=== PATIENT | female | born 1985 | race African-American/Black ===

== ENCOUNTER 2017-04-30 21:07 | Emergency (ER) | payer MEDICAID ==
[~2017-04-30] VITALS: Ht 167.6 cm; Wt 90.7 kg
[2017-04-30] MEDS ORDERED: OMEPRAZOLE10 M1 ORAL (21:09)
[2017-04-30] MEDS ORDERED: PHENERGAN SUPP25 MG BC (21:09)
[2017-04-30] MEDS ORDERED: BUSPIRONE HCL5 M2 ORAL (21:09)
--- NOTE | 2017-04-30 21:14 | Emergency Room Report ---
History of Present Illness General Chief Complaint: Asthma Source: Patient, EMS Present Illness HPI Is a 31-year-old female with a history of asthma. Usually well controlled a month ago. Now is more frequent exacerbation. [place]. And treat her wheezing. She was short of breath today and went to urgent care. She received prescription for albuterol inhaler and meds, received shot of steroid and prescription for steroid inhaler. Symptom worsen tonight. No nausea no vomiting. [place] tight. No fever or chills. EMS gave her breathing treatment on the way here. She said she fell better now. Allergies: Coded Allergies: No Known Allergies (Unverified , 04/30/17) Patient History Past Medical History: see triage record, old chart reviewed, asthma Past Surgical History: none Pertinent Family History: none Social History: Denies: smoking Last Menstrual Period: UNK Now: No Immunizations: other Reviewed Nursing Documentation: PMH: Agreed, PSxH: Agreed Review of Systems Eye: Denies: eye pain, blurred vision ENT: Denies: ear pain, nose congestion, throat swelling Respiratory: Reports: cough, shortness of breath, wheezing Cardiovascular: Denies: chest pain, palpitations Gastrointestinal: Denies: abdominal pain, diarrhea, nausea, vomiting Musculoskeletal: Denies: back pain, joint pain Skin: Denies: rash Neurological: Denies: headache, numbness Endocrine: Denies: increased thirst, increased urine Hematologic/Lymphatic: Denies: easy bruising All Other Systems: negative except mentioned in HPI Physical Exam Vital Signs Date Time Temp Pulse Resp B/P (MAP) Pulse Ox O2 Delivery O2 Flow Rate FiO2 04/30/17 21:02 97.5 132 24 140/90 100 Simple Mask 6.0 vitals with tachycardia Sp02 EP Interpretation: reviewed, normal General Appearance: well appearing, alert, mild distress Head: normocephalic, atraumatic Eyes: bilateral eye PERRL, bilateral eye EOMI ENT: hearing grossly normal, normal pharynx Neck: full range of motion, supple, no meningismus Respiratory: chest non-tender, decreased breath sounds, accessory muscle use, wheezing Cardiovascular #1: regular rate, rhythm, no murmur, tachycardia Gastrointestinal: normal bowel sounds, non tender, no mass, no organomegaly, no bruit, non-distended Musculoskeletal: back normal, gait/station normal, normal range of motion Psychiatric: mood/affect normal Skin: warm/dry Medical Decision Making Diagnostic Impression: Primary Impression: Asthma attack Qualified Codes: J45.901 - Unspecified asthma with (acute) exacerbation ER Course Patient presents with asthma exacerbation. No evidence of ACS, PE, dissection to name a few. No infection. We'll discharge home. Rhythm Strip Diag. Results EP Interpretation: yes Rate: 103 Rhythm: NSR, no ectopy CT/MRI/US Diagnostic Results CT/MRI/US Diagnostic Results : Imaging Test Ordered: CT chest Impression negative per radiologist Last Vital Signs Date Time Temp Pulse Resp B/P (MAP) Pulse Ox O2 Delivery O2 Flow Rate FiO2 04/30/17 21:02 97.5 132 24 140/90 100 Simple Mask 6.0 Status: improved Disposition: HOME, SELF-CARE Condition: Stable Scripts Prednisone* (PREDNISONE*) 20 Mg Tablet 60 MG ORAL DAILY, #12 TAB Prov: SUKUMAR CARRENO M.D. 05/01/17 Patient Instructions: Asthma, Adult Additional Instructions: Followup your DrArlen in 23 days. Return if symptom worsen. SUKUMAR CARRENO M.D. Apr 30, 2017 21:14
[2017-04-30] MEDS ORDERED: Solu-MEDROL 125mg Inj IVP ONE (21:15)
[2017-04-30 21:20] VITALS: BP 138/88
[2017-04-30 22:01] LABS: HEMATOCRIT 38.1 % (37.0-47.0); HEMOGLOBIN 12.6 G/DL (12.0-16.0); MEAN CORPUSCULAR VOLUME 89 FL (80-99); PLATELET COUNT 305 K/UL (150-450); RED BLOOD COUNT 4.28 M/UL (4.20-5.40); WHITE BLOOD COUNT 7.7 K/UL (4.8-10.8)
[2017-04-30 22:10] LABS: ANION GAP 13 mmol/L (5-15); BLOOD UREA NITROGEN 5 mg/dL (7-18); CALCIUM 8.7 MG/DL (8.5-10.1); CARBON DIOXIDE 21 MMOL/L (21-32); CHLORIDE 105 MMOL/L (98-107); POTASSIUM 3.5 MMOL/L (3.5-5.1); SODIUM 139 MMOL/L (136-145)
[2017-04-30 22:13] LABS: APPEARANCE,URINE CLEAR; BILIRUBIN, URINE NEGATIVE (NEGATIVE); COLOR,URINE PALE YELLOW; GLUCOSE, URINE (UA) NEGATIVE (NEGATIVE); KETONES,URINE NEGATIVE (NEGATIVE); LEUKOCYTE ESTERASE ,URINE 1+ (NEGATIVE); NITRITE,URINE NEGATIVE (NEGATIVE); PH,URINE 5 (4.5-8.0); PROTEIN,URINE NEGATIVE (NEGATIVE); UROBILINOGEN,URINE NORMAL MG/DL (0.0-1.0)
[2017-04-30 22:30] VITALS: BP 126/88
[2017-04-30 23:30] VITALS: BP 130/83
[2017-05-01] MEDS ORDERED: Albuterol ud Inhalation HHN ONE
[2017-05-01 00:05] VITALS: BP 118/72
[2017-05-01] MEDS ORDERED: Ketorolac 30mg Inj IV ONE (00:15)
[2017-05-01 01:00] VITALS: BP 122/72
[2017-05-01] MEDS ORDERED: PREDNISONE20 MG ORAL (01:48)
[2017-05-01 02:00] VITALS: BP 113/72
[2017-05-01 02:10] VITALS: BP 113/72
--- NOTE | 2017-05-01 08:55 | Diagnostic Imaging Report ---
Indication: Shortness of breath Technique: CT pulmonary angiogram performed utilizing automated exposure control with intravenous contrast. Axial, sagittal and coronal reconstructions were obtained. 3-D volumetric reconstructions were also performed. CT dose: Total DLP 786 mGycm; CTDI vol 30.5 mGy Comparison: None Findings: There is suboptimal contrast opacification of the pulmonary arteries. This renders the examination nondiagnostic for small subsegmental pulmonary emboli. There is no central, lobar or occlusive proximal segmental pulmonary embolism. Main pulmonary artery is normal in caliber. Thoracic aorta is normal in caliber. No evidence to suggest aortic dissection. There is a common origin of the brachiocephalic and left common carotid arteries, a normal anatomic variant. There is minimal dependent atelectasis. There is no focal airspace consolidation, no pleural effusion, no pneumothorax. No large endobronchial lesion identified. Heart size within normal limits. No pericardial effusion. No mediastinal or hilar adenopathy. Thyroid is normal. There is triangular soft tissue attenuation in the anterior mediastinum, likely residual thymus. Breast tissue appears symmetric. There is a partially visualized 1.3 cm low-attenuation lesion in the posterior right hepatic lobe which may represent a simple hepatic cyst. Otherwise, imaged upper abdomen unremarkable. No acute osseous abnormality seen. Impression: Suboptimal contrast opacification of the pulmonary arteries renders exam nondiagnostic for small distal segmental and subsegmental pulmonary emboli. No central, lobar or large proximal segmental pulmonary embolism seen. No thoracic aortic aneurysm or dissection. Lungs essentially clear. 1.3 cm low-attenuation lesion in the posterior right hepatic lobe possibly representing a simple hepatic cyst. More definitive characterization with abdominal ultrasound recommended on a nonemergent basis. This corresponds with the statrad preliminary report. The CT scanner at [facility] is accredited by the [employer] and the scans are performed using protocols designed to limit radiation exposure to as low as reasonably achievable to attain images of sufficient resolution adequate for diagnostic evaluation.
== END 2017-05-01 02:10 | disposition home or self-care (01) ==
LOC: EDBD 21:07 → EMR 21:15
DX: J45.901 Unspecified asthma with (acute) exacerbation (principal)
CPT/HCPCS: 36415; 71275; 80048; 81001; 81025; 84439; 84443; 85007; 85025; 85379; 94640; 94664; 96361; 96374; 96375; 99284; J1885; J2930; Q9967

== ENCOUNTER 2017-05-06 13:04 | Emergency (ER) | payer MEDICAID ==
[~2017-05-06] VITALS: Ht 160 cm; Wt 113.4 kg
[~2017-05-06 13:04] MED LIST: BUSPIRONE HCL5 M2 ORAL; OMEPRAZOLE10 M1 ORAL; PHENERGAN SUPP25 MG BC; PREDNISONE20 MG ORAL
--- NOTE | 2017-05-06 13:47 | Emergency Room Report ---
History of Present Illness General Chief Complaint: General Complaint Present Illness HPI 31 presents to the ED c/o Intermittent dizziness that she feels off balance, hyperventilation, numbness and tingling in the hands and feet, feeling as though something bad is going to happen to her, in addition to tightness in the chest x5 days. Patient was prescribed albuterol nebulized treatments at home for moderate to severe asthma exacerbation. She states that her wheezes do return on occasion. She reports that she just finished her last day of oral steroid. Denies fevers, chills, syncope.Pt. She reports hx of palpitations and has a tip bander who has evaluated her. Pt. reports hx of vertigo. Reports feeling palpitations as well during episodes. Denies CP, LOC, AMS, dizziness , Changes in Vision, or a sudden severe headache. Pt. reports having hx of anxiety, and sees a therapist regularly. reports previous trial of Buspar with no relief of her symptoms. pt. denies trials of other anti-anxiety or psychiatric medications. Pt. requests refill of meclizine as she has hx of vertigo. Allergies: Coded Allergies: No Known Allergies (Unverified , 04/30/17) Patient History Past Medical History: see triage record Past Surgical History: none Pertinent Family History: none Now: No Reviewed Nursing Documentation: PMH: Agreed, PSxH: Agreed Review of Systems All Other Systems: negative except mentioned in HPI Physical Exam Vital Signs Date Time Temp Pulse Resp B/P (MAP) Pulse Ox O2 Delivery O2 Flow Rate FiO2 05/06/17 13:08 98.1 95 20 107/79 98 Room Air Sp02 EP Interpretation: reviewed, normal General Appearance: no apparent distress, alert, GCS 15, non-toxic Head: normocephalic, atraumatic Eyes: bilateral eye normal inspection, bilateral eye PERRL ENT: hearing grossly normal, normal voice Neck: full range of motion Respiratory: chest non-tender, lungs clear, normal breath sounds, no wheezing, speaking full sentences Cardiovascular #1: regular rate, rhythm, normal capillary refill Gastrointestinal: normal bowel sounds, non tender, soft, no guarding, no rebound Rectal: deferred Genitourinary: normal inspection Musculoskeletal: back normal, gait/station normal, normal range of motion, non- tender Neurologic: alert, oriented x3, responsive, motor strength/tone normal, sensory intact, normal gait, speech normal, no pronator, other - no nystagmus Psychiatric: memory normal, no suicidal/homicidal ideation, no delusions, anxious - mildly tearful / describes agoraphobia Skin: normal color, no rash, warm/dry, well hydrated Medical Decision Making PA Attestation Dr. Barrera is my supervising Physician whom patient management has been discussed with. Diagnostic Impression: Primary Impression: Anxiety reaction ER Course 31 presents to the ED c/o Intermittent dizziness that she feels off balance, hyperventilation, numbness and tingling in the hands and feet, feeling as though something bad is going to happen to her, in addition to tightness in the chest x5 days. Patient was prescribed albuterol nebulized treatments at home for moderate to severe asthma exacerbation. She states that her wheezes do return on occasion. She reports that she just finished her last day of oral steroid. Denies fevers, chills, syncope.Pt. She reports hx of palpitations and has a tip bander who has evaluated her. Pt. reports hx of vertigo. Reports feeling palpitations as well during episodes. Denies CP, LOC, AMS, dizziness , Changes in Vision, or a sudden severe headache. Pt. reports having hx of anxiety, and sees a therapist regularly. reports previous trial of Buspar with no relief of her symptoms. pt. denies trials of other anti-anxiety or psychiatric medications. Pt. requests refill of meclizine as she has hx of vertigo. Ddx considered but are not limited to anxiety, SD, PE, asthma, thyroid storm, hyperthyroid, EPS Vital signs: are WNL, pt. is afebrile H&PE are most consistent with anxiety attack most likely potentiated by albuterol , no focal neurological deficits. No nystagmus or elicitation of vertigo upon Clark-Hallpike. pt. describes agoraphobia. ORDERS: none required at this time, the diagnosis is clinical -- EK BPM NSR - no acute ST changes reviewed by Dr. Barrera, this interpretation was scribed by JOLYNN Izquierdo ED INTERVENTIONS: - 1mg Ativan PO d/w pt. conservative treatment with anxiolytic , and close follow up with a primary care provider . pt given a list of primary care clinics and [facility] health urgent care information for follow up. d/w pt. to return to the ED with worsening or new symptoms. -Pt. instructed to D/C albuterol, will switch to xopidex as it has less sympathomimetic side effects. DISCHARGE: At this time pt. is stable for d/c to home. Will provide printed patient care instructions, and any necessary prescriptions. Care plan and follow up instructions have been discussed with the patient prior to discharge. EKG Diagnostic Results EP Interpretation: Dr. Barrera Rate: normal - 91 BPM Rhythm: NSR ST Segments: no acute changes ASA given to the pt in ED: No PA Scribe Text -- EK BPM NSR - no acute ST changes reviewed by Dr. Barrera, this interpretation was scribed by JOLYNN Izquierdo Last Vital Signs Date Time Temp Pulse Resp B/P (MAP) Pulse Ox O2 Delivery O2 Flow Rate FiO2 05/06/17 13:08 98.1 95 20 107/79 98 Room Air Disposition: HOME, SELF-CARE Condition: Stable Scripts Meclizine Hcl* (MECLIZINE*) 25 Mg Tablet 25 MG ORAL PRN for for dizziness, #15 TAB Prov: Ying Izquierdo 05/06/17 Alprazolam* (XANAX*) 0.5 Mg Tablet 0.5 MG ORAL PRN for For Anxiety, #10 TAB Prov: Ying Izquierdo 05/06/17 Levalbuterol Hcl (XOPENEX*) 0.63 Mg/3 Ml Vial.neb 0.63 MG HHN Q4H for 30 Days, #30 MG 0 Refills Prov: Ying Izquierdo 05/06/17 Referrals: [facility]ERR[facility] (PCP) Patient Instructions: Generalized Anxiety Disorder Additional Instructions: Take medications as directed. Follow up with a Primary Care Provider in 3-5 days, even if your symptoms have resolved. REVIEW [facility] resource information is provided. Return sooner to ED if new symptoms occur, or current symptoms become worse. - Please note that this Emergency Department Report was dictated using Appointed[employer] technology software, occasionally this can lead to erroneous entry secondary to interpretation by the dictation equipment. Ying Izquierdo May 06, 2017 13:47
[2017-05-06] MEDS ORDERED: XANAX0.5 MG ORAL (13:56)
[2017-05-06] MEDS ORDERED: MECLIZINE HCL25 MG ORAL (13:56)
[2017-05-06] MEDS ORDERED: XOPENEX0.63 MG/3 HHN (13:56)
[2017-05-06] MEDS ORDERED: LORazepam 1mg tab ORAL ONE (14:00)
[2017-05-06 14:07] VITALS: BP 116/72
--- NOTE | 2017-05-14 16:01 | Cardiology Report ---
APPROVED REPORT EKG Measurement Heart [id number] Normal sinus rhythm with sinus arrhythmia Normal ECG
== END 2017-05-06 14:14 | disposition home or self-care (01) ==
LOC: EMR 13:15
DX: F41.1 Generalized anxiety disorder (principal); R42 Dizziness and giddiness; R07.9 Chest pain, unspecified
CPT/HCPCS: 93005; 99284

== ENCOUNTER 2017-09-23 13:36 | Emergency (ER) | payer MEDICAID ==
[~2017-09-23] VITALS: Ht 160 cm; Wt 113.4 kg
[~2017-09-23 13:36] MED LIST changes: +MECLIZINE HCL25 MG ORAL; +XANAX0.5 MG ORAL; +XOPENEX0.63 MG/3 HHN
[2017-09-23] MEDS ORDERED: METHADONE HCL5 MG PO (13:47)
[2017-09-23] MEDS ORDERED: MORPHINE IR15 MG ORAL (13:47)
[2017-09-23] MEDS ORDERED: ALBUTEROL SULF8.5 GM INH (13:47)
[2017-09-23] MEDS ORDERED: Ketorolac 30mg Inj IM ONE (14:15)
--- NOTE | 2017-09-23 14:22 | Emergency Room Report ---
History of Present Illness General Chief Complaint: General Complaint Source: Patient Present Illness HPI 31-year-old female patient presents ER complaining of vomiting for the past few days. Patient reports "I think this is because of marijuana withdrawal". Patient reports that she's been smoking marijuana intermittently for the past 4 months. Also reports a history of chronic pain secondary to endometriosis, currently taking morphine and methadone for treatment of symptoms. Reports last took medication today. patient reports "I want to stop taking pain medication".. Patient reports she has been taking pain medication for several years. patient denies other acute symptoms, denies chest pain, shortness of breath, dysuria, hematuria, diarrhea. Denies vomiting blood. Reports history of gallstones, diagnosed a while ago, was not informed that she needed surgery at that time. States she had appointment with her primary care provider yesterday but missed appointment because too far away in [place], states contacted office and rescheduled appointment for October 08. Denies . reports history of vertigo, denies symptoms at this time. Allergies: Coded Allergies: No Known Allergies (Unverified , 04/30/17) Patient History Past Medical History: see triage record Reviewed Nursing Documentation: PMH: Agreed; PSxH: Agreed Nursing Documentation-PMH Past Medical History: No History, Except For Hx Cardiac Problems: Yes - IRREGULAR HEARTBEAT Hx Asthma: Yes History Of Psychiatric Problem: Yes - Anxiety Hx Neurological Problems: Yes - Vertigo Review of Systems All Other Systems: negative except mentioned in HPI Physical Exam Vital Signs Date Time Temp Pulse Resp B/P (MAP) Pulse Ox O2 Delivery O2 Flow Rate FiO2 09/23/17 13:41 98.0 103 18 109/75 99 98.1 Sp02 EP Interpretation: reviewed, normal General Appearance: well appearing, no apparent distress, alert, GCS 15, non- toxic Head: normocephalic, atraumatic Eyes: bilateral eye normal inspection, bilateral eye PERRL ENT: hearing grossly normal, normal pharynx, no angioedema, normal voice, uvula midline, moist mucus membranes Neck: full range of motion Respiratory: lungs clear, normal breath sounds, no rhonchi, no respiratory distress, no accessory muscle use, no wheezing, speaking full sentences Cardiovascular #1: regular rate, rhythm, no edema Gastrointestinal: non tender, soft, no mass, non-distended, no guarding, no rebound, other - negative Pratt, negative Rovsing Genitourinary: no CVA tenderness Musculoskeletal: back normal, digits/nails normal, gait/station normal, normal range of motion, non-tender Neurologic: alert, oriented x3, responsive, motor strength/tone normal, sensory intact Psychiatric: mood/affect normal Skin: no rash Lymphatic: no adenopathy Medical Decision Making PA Attestation Dr. Wade is my supervising Physician whom patient management has been discussed with. Diagnostic Impression: Primary Impression: Vomiting Additional Impressions: Marijuana use Opioid dependence, daily use ER Course Pt. presents to the ED c/o vomiting. Ddx considered but are not limited to gastritis, viral syndrome, food poisoning , UTI, , marijuana use, drugs. Vital signs: are WNL, pt. is afebrile ordered UA, urine , urine drug screen, Zofran and Toradol. ER course: Informed patient that she needs to follow-up with pain management discuss treatment plan to wean her off medications. Patient follow-up with primary care provider to ask for referral if needed. Follow with primary care provider about history of gallstones. On physical exam, no appetite tonal tenderness to palpation with distraction, negative Pratt sign, patient does not require labs or imaging at this time. Can follow up outpatient for further management and treatment. ordered UA, urine drug screen, urine to rule out underlying etiology of symptoms. CURES report reviewed, patient receives prescription for methadone and morphine from same provider for the last few months, last given one month ago. Informed patient that she needs to follow up with his provider to discuss reason for methadone and morphine, instructed informed patient usually not given together. Instructed to patient not to change the amount of dosage of medication that she takes without first consulting her primary care provider or paint spray tender, patient states she's been slowly taking less morphine pills without first consulting doctor. Informed patient that that may be why her pain symptoms are increasing, needs to come up with tape plan with her physician. urine drug screen positive for marijuana and opioids. UA shows no nitrites, 1+ leukocyte esterase and 2-4 WBCs, many epithelial cells , patient isn't medically, low suspicion for UTI, does not require antibiotics at this time. Urine negative. discussed results with patient. Symptoms likely related to opioids and marijuana use. don't smoke marijuana. Patient reports feeling better following administration of medication. Patient able to tolerate PO fluids at this time. Patient does not require abx at this time; afebrile, no recent travel, no blood in stool. Return to ER if symptoms persist. Drink fluids as tolerated to prevent dehydration. Patient reports feeling better, able to tolerate PO fluids, OK for discharge to home. DISCHARGE Rx provided for [place] At this time pt is stable for d/c to home. Patient is resting comfortably, in no acute distress, nontoxic appearing, talking without difficulty. Patient to take medications as instructed Will provide with patient care instructions and any necessary prescriptions. Care plan and follow-up instructions provided. Patient instructed to follow-up with primary care provider in 3 - 5 days. Patient questions asked and answered. Patient reports understanding and agreement to treatment plan.ER precautions given. Patient instructed to return to ER immediately for any new or worsening of symptoms including but not limited to increasing SOB, persistent fever, intractable vomiting. - Please note that this Emergency Department Report was dictated using Peak[employer] casting machine operator technology software, occasionally this can lead to erroneous entry secondary to interpretation by the dictation equipment. Labs Test 09/23/17 14:19 Urine Color Pale yellow Urine Appearance Turbid Urine pH 8 (4.5-8.0) Urine Specific [place] 1.010 (1.005-1.035) Urine Protein Negative (NEGATIVE) Urine Glucose (UA) Negative (NEGATIVE) Urine Ketones 1+ (NEGATIVE) Urine Occult Blood Negative (NEGATIVE) Urine Nitrite Negative (NEGATIVE) Urine Bilirubin Negative (NEGATIVE) Urine Urobilinogen Normal MG/DL (0.0-1.0) Urine Leukocyte Esterase 1+ (NEGATIVE) Urine RBC 0-2 /HPF (0 - 2) Urine WBC 2-4 /HPF (0 - 2) Urine Squamous Epithelial Cells Moderate /LPF (NONE/OCC) Urine Bacteria Few /HPF (NONE) Urine HCG, Qualitative Negative (NEGATIVE) Urine Opiates Screen Positive (NEGATIVE) Urine Barbiturates Screen Negative (NEGATIVE) Phencyclidine (PCP) Screen Negative (NEGATIVE) Urine Amphetamines Screen Negative (NEGATIVE) Urine Benzodiazepines Screen Negative (NEGATIVE) Urine Cocaine Screen Negative (NEGATIVE) Urine Marijuana (THC) Screen Positive (NEGATIVE) Last Vital Signs Date Time Temp Pulse Resp B/P (MAP) Pulse Ox O2 Delivery O2 Flow Rate FiO2 09/23/17 13:41 98.0 103 18 109/75 99 98.1 Disposition: HOME, SELF-CARE Condition: Stable Scripts Ondansetron* (ZOFRAN*) 4 Mg Tablet 4 MG ORAL Q6H PRN for Nausea & Vomiting, #5 TAB Prov: Messi Rosas 09/23/17 Patient Instructions: Cannabis Use Disorder, Nausea and Vomiting, Adult, Easy- to-Read, Opioid Use Disorder Additional Instructions: Followup with primary care provider in 3 -5 days. discuss referral for further management and treatment of symptoms. Request paint spray tender as needed Follow-up with paint spray tender. Discuss new treatment plan to taper off of opioid medication. Take medications at dosages instructed by provider, do not alter dosages of medications on her own. Avoid spicy foods, avoid dairy foods. BRAT diet: bananas, rice, apple sauce, toast. Take medications as directed. Patient questions asked and answered. ER precautions given, patient instructed to return to ER immediately for any new or worsening of symptoms. Messi Rosas September 23, 2017 14:22
[2017-09-23 14:35] LABS: APPEARANCE,URINE TURBID; BILIRUBIN, URINE NEGATIVE (NEGATIVE); COLOR,URINE PALE YELLOW; GLUCOSE, URINE (UA) NEGATIVE (NEGATIVE); KETONES,URINE 1+ (NEGATIVE); LEUKOCYTE ESTERASE ,URINE 1+ (NEGATIVE); NITRITE,URINE NEGATIVE (NEGATIVE); PH,URINE 8 (4.5-8.0); PROTEIN,URINE NEGATIVE (NEGATIVE); UROBILINOGEN,URINE NORMAL MG/DL (0.0-1.0)
[2017-09-23] MEDS ORDERED: ZOFRAN4 M3 ORAL (15:08)
[2017-09-23 15:30] VITALS: BP 111/73
== END 2017-09-23 15:30 | disposition home or self-care (01) ==
LOC: EMR 14:12
DX: R11.10 Vomiting, unspecified (principal); F11.20 Opioid dependence, uncomplicated; F12.90 Cannabis use, unspecified, uncomplicated; J45.909 Unspecified asthma, uncomplicated; F41.9 Anxiety disorder, unspecified
CPT/HCPCS: 80307; 81001; 81025; 96372; 99283; J1885

== ENCOUNTER 2017-09-26 22:04 | Emergency (ER) | payer MEDICAID ==
[~2017-09-26] VITALS: Ht 160 cm; Wt 113.4 kg
[~2017-09-26 22:04] MED LIST changes: +ALBUTEROL SULF8.5 GM INH; +METHADONE HCL5 MG PO; +MORPHINE IR15 MG ORAL; +ZOFRAN4 M3 ORAL
[2017-09-26 22:15] VITALS: BP 112/66
--- NOTE | 2017-09-26 22:17 | Emergency Room Report ---
History of Present Illness General Chief Complaint: Vertigo Source: Patient, Medical Record, EMS Present Illness HPI Patient presents with complaints of dizziness She reports that she was driving here for lightheadedness however started having vertigo and paramedics were summoned Patient reports that she has been trying to quit marijuana after being on it for about 4 months wasn't sure if she was having withdrawal symptoms Patient has increased nausea Lightheadedness is worsened with standing Denies any dysuria or frequency denies any fevers or chills Allergies: Coded Allergies: No Known Allergies (Unverified , 04/30/17) Patient History Past Medical History: see triage record Pertinent Family History: none Last Menstrual Period: "first week of this , September" Now: No Reviewed Nursing Documentation: PMH: Agreed; PSxH: Agreed Nursing Documentation-PMH Hx Cardiac Problems: Yes - IRREGULAR HEARTBEAT Hx Asthma: Yes History Of Psychiatric Problem: Yes Hx Neurological Problems: Yes - Vertigo Review of Systems All Other Systems: negative except mentioned in HPI Physical Exam Vital Signs Date Time Temp Pulse Resp B/P (MAP) Pulse Ox O2 Delivery O2 Flow Rate FiO2 09/26/17 22:06 98.2 110 18 110/90 98 Room Air 98.2 Sp02 EP Interpretation: reviewed, normal General Appearance: mild distress - anxious Head: normocephalic, atraumatic Eyes: bilateral eye PERRL, bilateral eye EOMI ENT: hearing grossly normal, normal pharynx, TMs + canals normal, uvula midline Neck: full range of motion, supple, no meningismus, no bony tend Respiratory: lungs clear, normal breath sounds, no rhonchi, no respiratory distress, no retraction, no accessory muscle use Cardiovascular #1: normal peripheral pulses, regular rate, rhythm, no edema, no gallop, no JVD, no murmur Gastrointestinal: normal bowel sounds, non tender, soft, no mass, no organomegaly, non-distended, no guarding, no hernia, no pulsatile mass, no rebound Genitourinary: no CVA tenderness Musculoskeletal: normal inspection Neurologic: oriented x3, responsive, ward service supervisor III-XII nml as tested, motor strength/ tone normal, sensory intact Psychiatric: mood/affect normal Skin: pallor Lymphatic: normal inspection, no adenopathy Medical Decision Making Diagnostic Impression: Primary Impression: Opiate withdrawal Additional Impressions: Weakness Vertigo ER Course Multiple differentials considered patient is complex requiring blood work and IV access Including hydration and different medications dispensed patient initially contribute her symptoms with lightheadedness and dizziness To the Zofran that she was given previously However patient appears to be receiving methadone and morphine And further discussion she reports that her last morphine dose was 3 days ago Essentially similar time to her feeling uncomfortable I felt that this is more likely secondary to opiate withdrawal is supposed to reaction to Zofran Patient has done well throughout her stay at this time requires close follow-up with her physician tomorrow Labs Test 09/26/17 22:17 White Blood Count 11.5 K/UL (4.8-10.8) Red Blood Count 4.98 M/UL (4.20-5.40) Hemoglobin 13.9 G/DL (12.0-16.0) Hematocrit 41.8 % (37.0-47.0) Mean Corpuscular Volume 84 FL (80-99) Mean Corpuscular Hemoglobin 27.9 PG (27.0-31.0) Mean Corpuscular Hemoglobin Concent 33.2 G/DL (32.0-36.0) Red Cell Distribution Width 14.0 % (11.6-14.8) Platelet Count 264 K/UL (150-450) Mean Platelet Volume 8.5 FL (6.5-10.1) Neutrophils (%) (Auto) 82.2 % (45.0-75.0) Lymphocytes (%) (Auto) 13.2 % (20.0-45.0) Monocytes (%) (Auto) 3.5 % (1.0-10.0) Eosinophils (%) (Auto) 0.1 % (0.0-3.0) Basophils (%) (Auto) 1.0 % (0.0-2.0) Sodium Level 138 MMOL/L (136-145) Potassium Level 3.5 MMOL/L (3.5-5.1) Chloride Level 100 MMOL/L (98-107) Carbon Dioxide Level 20 MMOL/L (21-32) Anion Gap 18 mmol/L (5-15) Blood Urea Nitrogen 7 mg/dL (7-18) Creatinine 1.0 MG/DL (0.55-1.30) Estimat Glomerular Filtration Rate > 60 mL/min (>60) Glucose Level 92 MG/DL (74-106) Calcium Level 9.6 MG/DL (8.5-10.1) Total Bilirubin 0.4 MG/DL (0.2-1.0) Aspartate Amino Transf (AST/SGOT) 18 U/L (15-37) Alanine Aminotransferase (ALT/SGPT) 19 U/L (12-78) Alkaline Phosphatase 92 U/L (46-116) Total Creatine Kinase 141 U/L (26-308) Creatine Kinase MB 0.6 NG/ML (0.0-3.6) Creatine Kinase MB Relative Index 0.4 Total Protein 9.1 G/DL (6.4-8.2) Albumin 4.5 G/DL (3.4-5.0) Globulin 4.6 g/dL Albumin/Globulin Ratio 1.0 (1.0-2.7) Lipase 73 U/L (73-393) Rhythm Strip Diag. Results EP Interpretation: yes Rate: 67 Rhythm: NSR, no PVC's, no ectopy Last Vital Signs Date Time Temp Pulse Resp B/P (MAP) Pulse Ox O2 Delivery O2 Flow Rate FiO2 09/26/17 22:06 98.2 110 18 110/90 98 Room Air 98.2 Status: improved Disposition: HOME, SELF-CARE Condition: Improved Scripts Metoclopramide Hcl* (REGLAN*) 5 Mg Tablet 5 MG ORAL EVERY 12 HOURS for nausea, #10 TAB Prov: Esther Miller DO 09/27/17 Clonidine Hcl* (CATAPRES*) 0.1 Mg Tablet 0.1 MG ORAL EVERY 12 HOURS for withdrawal symptoms, #10 TAB Prov: Esther Miller DO 09/27/17 Additional Instructions: Patient is provided with the discharge instructions notified to follow up with primary doctor in the next 2-3 days otherwise return to the er with any worsening symptoms. Please note that this report is being documented using [employer] technology. This can lead to erroneous entry secondary to incorrect interpretation by the dictating instrument. Esther Miller DO September 26, 2017 22:17
[2017-09-26] MEDS: DiphenhydrAMINE 50mg/ml Inj IVP ONE (22:58)
[2017-09-26] MEDS: Sodium Chloride 500ML 500 ML IV ONE (22:58)
[2017-09-26] MEDS: LORazepam Inj 2mg/ml 1ml IV ONE (22:58)
[2017-09-26 23:02] LABS: EOSINOPHILS % (AUTO) 0.1 % (0.0-3.0); HEMATOCRIT 41.8 % (37.0-47.0); HEMOGLOBIN 13.9 G/DL (12.0-16.0); LYMPHOCYTES % (AUTO) 13.2 % (20.0-45.0); MEAN CORPUSCULAR VOLUME 84 FL (80-99); MONOCYTES % (AUTO) 3.5 % (1.0-10.0); NEUTROPHILS % (AUTO) 82.2 % (45.0-75.0); PLATELET COUNT 264 K/UL (150-450); RED BLOOD COUNT 4.98 M/UL (4.20-5.40); WHITE BLOOD COUNT 11.5 K/UL (4.8-10.8)
[2017-09-26 23:19] LABS: ANION GAP 18 mmol/L (5-15); BLOOD UREA NITROGEN 7 mg/dL (7-18); CALCIUM 9.6 MG/DL (8.5-10.1); CARBON DIOXIDE 20 MMOL/L (21-32); CHLORIDE 100 MMOL/L (98-107); POTASSIUM 3.5 MMOL/L (3.5-5.1); SODIUM 138 MMOL/L (136-145)
[2017-09-26 23:33] LABS: ALANINE AMINOTRANSFERASE 19 U/L (12-78); ALBUMIN 4.5 G/DL (3.4-5.0); ALKALINE PHOSPHATASE 92 U/L (46-116); ASPARTATE AMINO TRANSFERASE 18 U/L (15-37); BILIRUBIN,TOTAL 0.4 MG/DL (0.2-1.0); CKMB 0.6 NG/ML (0.0-3.6); CREATINE KINASE 141 U/L (26-308)
[2017-09-27] MEDS: Ketorolac 30mg Inj IV ONE (01:03)
[2017-09-27] MEDS ORDERED: REGLAN5 MG ORAL (01:57)
[2017-09-27] MEDS ORDERED: CATAPRES0.1 MG ORAL (01:57)
[2017-09-27 02:10] VITALS: BP 123/62
[2017-09-27 02:18] VITALS: BP 123/62
--- NOTE | 2017-09-27 14:01 | Cardiology Report ---
APPROVED REPORT EKG Measurement Heart [id number] Normal sinus rhythm with sinus arrhythmia Possible Left atrial enlargement Borderline ECG
== END 2017-09-27 02:18 | disposition home or self-care (01) ==
LOC: EDUNIT# 22:04 → EDBD 22:04 → EMR 22:20
DX: F11.23 Opioid dependence with withdrawal (principal); R53.1 Weakness; R42 Dizziness and giddiness; J45.909 Unspecified asthma, uncomplicated
CPT/HCPCS: 36415; 80053; 82550; 82553; 83690; 85025; 93005; 96360; 96374; 96375; 99284; J1200; J1885; J2405; J7040

== ENCOUNTER 2017-12-30 16:00 | Emergency (ER) | payer MEDICAID ==
[~2017-12-30] VITALS: Ht 160 cm; Wt 104.3 kg
[~2017-12-30 16:00] MED LIST changes: +CATAPRES0.1 MG ORAL; +REGLAN5 MG ORAL
[2017-12-30] MEDS ORDERED: Albuterol ud Inhalation HHN ONE (16:45)
[2017-12-30] MEDS ORDERED: Ipratropium 0.02% Inh Soln 2.5ml UD HHN ONE (16:45)
[2017-12-30] MEDS ORDERED: Promethazine/DM 6.25mg/5ml ORAL ONE (16:45)
[2017-12-30 16:48] VITALS: BP 110/70
[2017-12-30] MEDS ORDERED: ALBUTEROL SULF8.5 GM INH (17:31)
[2017-12-30] MEDS ORDERED: PROMETHAZINE-D118 ML ORAL (17:31)
[2017-12-30] MEDS ORDERED: PREDNISONE20 MG ORAL (17:31)
[2017-12-30 17:41] VITALS: BP 114/75
[2017-12-30 17:43] VITALS: BP 114/75
--- NOTE | 2017-12-30 18:11 | Emergency Room Report ---
History of Present Illness General Chief Complaint: Flu Like Symptoms Source: Patient Present Illness HPI 32-year-old female presents ED for evaluation. Patient complaining of cough and shortness of breath 2 days. Cough is productive with greenish sputum. States she has history of asthma. Denies fevers chills. Notes sore throat or earache. Pain is dull, 5 out of 10, nonradiating. Denies sick contacts or recent travel. No other aggravating relieving factors. Denies any other associated symptoms Allergies: Coded Allergies: No Known Allergies (Unverified , 04/30/17) Patient History Past Medical History: asthma, psych hx Past Surgical History: none Pertinent Family History: none Social History: Denies: smoking, alcohol use, drug use Last Menstrual Period: 12/09/2018 Now: No Immunizations: UTD Reviewed Nursing Documentation: PMH: Agreed; PSxH: Agreed Nursing Documentation-PMH Past Medical History: No History, Except For Hx Cardiac Problems: Yes - IRREGULAR HEARTBEAT Hx Asthma: Yes Hx Neurological Problems: Yes - Vertigo Review of Systems All Other Systems: negative except mentioned in HPI Physical Exam Vital Signs Date Time Temp Pulse Resp B/P (MAP) Pulse Ox O2 Delivery O2 Flow Rate FiO2 12/30/17 16:14 98.6 107 20 110/70 92 Room Air 98.6 12/30/17 16:52 21 Sp02 EP Interpretation: reviewed, normal General Appearance: no apparent distress, alert, GCS 15, non-toxic Head: normocephalic, atraumatic Eyes: bilateral eye normal inspection, bilateral eye PERRL ENT: hearing grossly normal, normal pharynx, no angioedema, normal voice Neck: full range of motion, supple/symm/no masses Respiratory: chest non-tender, normal breath sounds, decreased breath sounds, speaking full sentences, wheezing Cardiovascular #1: regular rate, rhythm, no edema Cardiovascular #2: 2+ carotid (R), 2+ carotid (L), 2+ radial (R), 2+ radial (L) , 2+ dorsalis pedis (R), 2+ dorsalis pedis (L) Gastrointestinal: normal bowel sounds, non tender, soft, non-distended, no guarding, no rebound Rectal: deferred Genitourinary: normal inspection, no CVA tenderness Musculoskeletal: back normal, gait/station normal, normal range of motion, non- tender Neurologic: alert, oriented x3, responsive, motor strength/tone normal, sensory intact, speech normal Psychiatric: judgement/insight normal, memory normal, mood/affect normal, no suicidal/homicidal ideation Reflexes: 3+ bicep (R), 3+ bicep (L), 3+ tricep (R), 3+ tricep (L), 3+ knee (R) , 3+ knee (L) Skin: normal color, no rash, warm/dry, well hydrated Lymphatic: no adenopathy Medical Decision Making Diagnostic Impression: Primary Impression: Bronchitis ER Course Hospital Course 32-year-old female presents to ED complaining of cough, runny nose ,congestion Differential diagnoses include: URI, bronchitis, asthma/COPD, pneumonia Clinical course Patient placed on stretcher. After initial history and physical I ordered prednisone and nebulizer treatment. Upon reassessment patient states cough and symptoms have improved. Findings consistent with bronchitis. Diagnosis - bronchitis Stable and discharged home with prescriptions for Rx prednisone, promethazine, albuterol. Instructed to followup with PMD. Return to ED if symptoms recur or worsen Last Vital Signs Date Time Temp Pulse Resp B/P (MAP) Pulse Ox O2 Delivery O2 Flow Rate FiO2 12/30/17 17:43 98.6 106 20 114/75 96 Room Air 21 98.6 Status: improved Disposition: HOME, SELF-CARE Condition: Stable Scripts Albuterol Sulfate* (ALBUTEROL SULFATE MDI*) 8.5 Gm Hfa.aer.ad 2 PUFF INH Q6H, #1 EA 0 Refills Prov: Tomy Sellers MD 12/30/17 Prednisone* (PREDNISONE*) 20 Mg Tablet 40 MG ORAL DAILY, #10 TAB Prov: Tomy Sellers MD 12/30/17 D-Methorphan Hb/Prometh Hcl* (PROMETHAZINE-DM SYRUP*) 118 Ml Syrup 5 ML ORAL Q6H PRN for For Cough, #118 ML 0 Refills Prov: Tomy Sellers MD 12/30/17 Referrals: [facility]ERR[facility] (PCP) Patient Instructions: Acute Bronchitis, [id number] Tomy Sellers MD Dec 30, 2017 18:11
== END 2017-12-30 18:00 | disposition home or self-care (01) ==
LOC: EMR 17:35
DX: J40 Bronchitis, not specified as acute or chronic (principal); J45.909 Unspecified asthma, uncomplicated
CPT/HCPCS: 94640; 99284; J7512